=== PATIENT | male | born 1970 | race Caucasian/White ===

== ENCOUNTER 2016-08-13 08:45 | Day surgery (SDC) | payer OTHER ==
[2016-08-09 15:47] VITALS: BMI 28.1
[2016-08-13] MEDS ORDERED: oxyCODONE HCL 5 MG TABLET PO PRN ×3 (10:04→12:07)
[2016-08-13] MEDS ORDERED: oxyCODONE HCL 10 MG SUSTAINED ACTING TABLET PO ONE (10:04)
[2016-08-13] MEDS ORDERED: PROPOFOL 20 ML ONE ×2 (10:05)
[2016-08-13] MEDS ORDERED: LIDOCAINE HCL/PF 2% SDV 5ML VIAL ONE (10:06)
[2016-08-13] MEDS ORDERED: BUPIVACAINE HCL/EPINEPHRINE/PF 30 ML VIAL IJ ONE (10:08)
[2016-08-13] MEDS ORDERED: MIDAZOLAM HCL 2 MG/2 ML SINGLE DOSE VIAL ONE (10:36)
[2016-08-13] MEDS ORDERED: ceFAZolin SODIUM 1 GM VIAL ONE (10:50)
[2016-08-13] MEDS ORDERED: KETOROLAC TROMETHAMINE 30 MG/1 ML VIAL ONE (11:20)
[2016-08-13] MEDS ORDERED: ONDANSETRON 4 MG/2 ML VIAL ONE (11:20)
[2016-08-13] MEDS ORDERED: DEXAMETHASONE SOD PHOSPHATE 4 MG/1 ML VIAL ONE (11:20)
--- NOTE | 2016-08-13 11:33 | OP ---
Operative Note - Note: Operative Date: 08/13/16 Pre-Operative Diagnosis: left knee MMT Operation: Left knee MMT Post-Operative Diagnosis: Same as Pre-op Surgeon: Alfonso Mcmanus Anesthesia: Local Operative Report Dictated: Yes
--- NOTE | 2016-08-13 11:33 | DS ---
Physical Examination Vital Signs: Vital Signs Temperature 98.9 F 08/13/16 09:22 Pulse Rate 90 08/13/16 09:22 Respiratory Rate 16 08/13/16 09:22 Blood Pressure 120/70 08/13/16 09:22 O2 Sat by Pulse Oximetry (%) 96 08/13/16 09:31 Discharge Summary Reason For Visit: MEDIAL MENISCAL TEAR, LEFT KNEE Condition: Good - Instructions Diet, Activity, Other Instructions: Post Operative Instructions: Knee Arthroscopy Dr Alfonso Mcmanus 1. Pain following an arthroscopy is variable. Some patients will have more pain than others. You have been provided with a prescription for medication that contains a narcotic. You are not allowed to drive while on this medication. You should NOT take Tylenol (Acetaminophen) when taking the pain medication ( it will result in an overdose). Feel free to take medications such as Ibuprofen or Naprosyn in addition to the pain medicine if you do not have any problems with the NSAID class of medications. 2. You can remove the bandages and shower in 24 hours unless directed otherwise. You are not allowed to bathe or go swimming until the sutures are removed. Put band-aids on the sutures after your shower and do not put any creams or lotions over the incisions. 3. You are allowed to put all your weight on the leg and bend your knee, unless directed otherwise. 4. Apply ice to the knee for 15 min every hour or so. You may continue this for as many days as you like. 5. Please call the office to schedule a visit to have your sutures removed. 6. If for any reason you believe you may have an infection or are concerned, please feel free to call me. I can be reached through our office number 24 hours a day. 7. Please call our office with any questions; we will review the surgical findings during your post operative visit. Disposition: HOME - Home Medications Comprehensive Discharge Medication List: Ambulatory Orders Atorvastatin Ca [Lipitor] 10 mg PO HS 08/09/16
[2016-08-13] MEDS ORDERED: LACTATED RINGERS SOLUTION 1,000 ML IV SCH (12:00)
[2016-08-13] MEDS ORDERED: ONDANSETRON 4 MG/2 ML VIAL IVPUSH PRN (12:07)
[2016-08-13] MEDS ORDERED: PROMETHAZINE HCL 25 MG/1 ML VIAL IVPUSH PRN (12:08)
[2016-08-13] MEDS ORDERED: PROMETHAZINE HCL 25 MG/1 ML VIAL ONE (12:18)
[2016-08-13 13:28] VITALS: TEMP 97.7
[2016-08-13 14:10] VITALS: BP 122/67; PULSE 78
--- NOTE | 2016-08-17 13:18 | PATH ---
Surgical Pathology Report Patient Name: MELLO OLIVARES Med. Rec. #: [id number] /Age/Gender: 1970 (Age: 46) / M Account: [id number] Location: [facility] AM[facility] Taken: 08/13/2016 Received: 08/13/2016 Reported: 08/17/2016 Physicians: Alfonso Mcmanus M.D. Specimen(s) Received LEFT KNEE SHAVINGS Clinical History Medial meniscal tear left knee Final Diagnosis KNEE, LEFT, ARTHROSCOPIC SHAVING: FIBROCARTILAGE WITH MYXOID DEGENERATIVE CHANGES, ALONG WITH PORTIONS OF SYNOVIUM. Electronically Signed Pepe Montano M.D. Gross Description Received in formalin, labeled "left knee shavings," is a 4.5 x 3.5 x 0.3 cm. aggregate of bashir-yellow soft tissue fragments. A contracts representative portion is submitted in one cassette. /08/16/201608/16/2016
== END 2016-08-13 14:15 | disposition home or self-care (01) ==
LOC: FASU 08:45
PROVIDERS: ATTEND Orthopaedic Surgery
PROC: 0SBD4ZZ Excision of Left Knee Joint, Percutaneous Endoscopic Approach (ICD-10-PCS; principal; 2016-08-13 11:07)
DX: S83.232D Complex tear of medial meniscus, current injury, left knee, subsequent encounter (principal); M67.52 Plica syndrome, left knee; X58.XXXD Exposure to other specified factors, subsequent encounter
CPT/HCPCS: 88304-TC; 94760